=== PATIENT | male | born 1990 | race Two or more races ===

== ENCOUNTER 2025-04-24 12:39 | Emergency (ER) | payer BC ==
[~2025-04-24] VITALS: Ht 160 cm; Wt 61.2 kg
[2025-04-24 12:46] VITALS: BP 108/76; TEMP 98.3
[2025-04-24] MEDS ORDERED: CEPH-570 PO (13:16)
[2025-04-24] MEDS ORDERED: CEPHALEXIN MONOHYDRATE 500 MG CAPSULE PO ONE (13:26)
[2025-04-24] MEDS ORDERED: IBUPROFEN 400 MG TABLET ONE (13:27)
[2025-04-24] MEDS ORDERED: AMOX/CLAVULANATE 875 MG TABLET PO ONE (13:30)
[2025-04-24] MEDS: CEPHALEXIN MONOHYDRATE 500 MG CAPSULE PO ONE (13:31)
[2025-04-24] MEDS: IBUPROFEN 400 MG TABLET PO ONE (13:32)
[2025-04-24 13:34] VITALS: O2SAT 97
== END 2025-04-24 13:35 | disposition home or self-care (01) ==
LOC: ER 12:43
DX: T63.391A Toxic effect of venom of other spider, accidental (unintentional), initial encounter (principal); L03.317 Cellulitis of buttock; F19.10 Other psychoactive substance abuse, uncomplicated; Z59.00 Homelessness unspecified; Y92.89 Other specified places as the place of occurrence of the external cause